=== PATIENT | female | born 1960 | race Caucasian/White ===

== ENCOUNTER 2018-11-22 11:56 | Inpatient (IN) | payer BC ==
[~2018-11-22] VITALS: Ht 167.6 cm; Wt 77.1 kg
[2018-11-22 13:15] LABS: CALCIUM 9.6 mg/dL (8.4-11.0); CREATININE 0.77 mg/dL (0.55-1.30); POTASSIUM 3.8 mmol/L (3.5-5.1)
[2018-11-22] MEDS ORDERED: MORPHINE 4 MG/ML INJ. SYRINGE IVP ONE ×2 (13:15→15:00)
[2018-11-22 13:16] LABS: BILIRUBIN,URINE NEGATIVE (NEGATIVE); BLOOD, URINE NEGATIVE (NEGATIVE); CLARITY/URINE CLEAR (CLEAR); COLOR,URINE YELLOW (YELLOW); GLUCOSE,URINE 3+ (NEGATIVE); KETONES,URINE 1+ (NEGATIVE); LEUKOCYTE ESTERASE ,URINE NEGATIVE (NEGATIVE); NITRITE, URINE NEGATIVE (NEGATIVE); PROTEIN URINE NEGATIVE (NEGATIVE); UROBILINOGEN,URINE 0.2 (0.2-1.0)
[2018-11-22 13:19] LABS: ALBUMIN 3.9 g/dL (3.4-4.8); TOTAL BILIRUBIN 0.4 mg/dL (0.0-1.0)
[2018-11-22 13:20] LABS: RED BLOOD CELL COUNT(AUTO) 4.92 MIL/uL (4.2-6.2); WHITE BLOOD COUNT (AUTO) 8.7 K/uL (4.8-10.8)
[2018-11-22 13:21] LABS: HEMATOCRIT 47.8 % (36-48); MEAN CORPUSCULAR HEMOGLOBIN 33 pg (27-31); MEAN CORPUSCULAR HGB CONC 34 % (32-36); MEAN CORPUSCULAR VOLUME 97 fL (79.0-98.0); PLATELET COUNT (AUTO) 187 K/uL (130-430); RED CELL DISTRIBUTION WIDTH 12.9 % (9.0-15.0)
[2018-11-22 13:22] LABS: BASOPHILS % (AUTO) 0.5 % (0.0-2.0); EOSINOPHILS # (AUTO) 0.1 K/uL (0.0-0.4); EOSINOPHILS % (AUTO) 1.2 % (0.0-4.0); LYMPHOCYTES # (AUTO) 2.3 K/uL (1.0-5.5); LYMPHOCYTES % (AUTO) 26.3 % (20.5-51.5); MONOCYTES # (AUTO) 0.6 K/uL (0.0-1.0); MONOCYTES % (AUTO) 6.5 % (1.7-9.3); NEUTROPHILS # (AUTO) 5.7 K/uL (1.8-7.7); NEUTROPHILS % (AUTO) 65.5 % (40.0-70.0)
[2018-11-22 13:33] LABS: RBC,URINE 0-3 /HPF (0-3)
[2018-11-22 13:34] LABS: BACTERIA,URINE RARE /HPF (None Seen); MUCUS,URINE None Seen /LPF (None Seen); WBC,URINE 0-3 /HPF (0-3); YEAST,URINE None Seen /HPF (None Seen)
[2018-11-22] MEDS ORDERED: ONDANSETRON HCL 4 MG/2 ML VIAL IVP ONE (14:00)
[2018-11-22] MEDS ORDERED: ESTR1TAB17 PO (16:22)
[2018-11-22] MEDS ORDERED: SIMV10TA2 PO (16:22)
[2018-11-22] MEDS ORDERED: LOSA50TA3 PO (16:22)
[2018-11-22] MEDS ORDERED: METF-380 PO (16:22)
[2018-11-22] MEDS ORDERED: SAXA5TAB PO (16:22)
[2018-11-22] MEDS ORDERED: NYST15CR2 TP (16:22)
[2018-11-22] MEDS ORDERED: fentaNYL CITRATE/PF 100 MCG/2 ML AMP IVP ONE (16:45)
[2018-11-22 17:02] VITALS: BP_SYST 191
[2018-11-22] MEDS ORDERED: DEXTROSE 50% JECT 50 ML DISP.SYRIN IVP PRN (17:15)
[2018-11-22] MEDS ORDERED: cloNIDine HCL 0.1 MG TABLET PO PRN (17:30)
[2018-11-22] MEDS ORDERED: METOCLOPRAMIDE HCL 10 MG/2 ML VIAL IVP PRN (17:30)
[2018-11-22] MEDS ORDERED: hydrALAZINE HCL 20 MG/ML VIAL IVP PRN (17:30)
[2018-11-22] MEDS ORDERED: ENALAPRILAT DIHYDRATE 1.25 MG/ML VIAL IVP PRN (17:30)
[2018-11-22] MEDS: D5NS 1,000 ML IV SCH (17:48)
[2018-11-22] MEDS: INSULIN REGULAR, HUMAN 100 UNITS/ML, 10 ML VIAL (novoLIN R) SUBCUT PRN ×2 (17:54→23:42)
[2018-11-22] MEDS: metroNIDAZOLE 500 mg/NS 100 ML IV SCH (18:52)
[2018-11-22] MEDS: HYDROmorphone 2 MG/ML VIAL IVP PRN ×2 (18:53→23:36)
[2018-11-22 19:00] VITALS: BP_SYST 138
[2018-11-22 20:00] VITALS: BP_SYST 131
[2018-11-22] MEDS: LEVOFLOXACIN 500 MG/D5W 100 ML IV SCH (20:15)
[2018-11-23 00:50] VITALS: BP_SYST 150
[2018-11-23] MEDS: D5NS 1,000 ML IV SCH ×3 (01:32→22:30)
[2018-11-23] MEDS: metroNIDAZOLE 500 mg/NS 100 ML IV SCH ×3 (01:32→17:03)
[2018-11-23] MEDS: HYDROmorphone 2 MG/ML VIAL IVP PRN ×3 (04:50→23:19)
[2018-11-23] MEDS: INSULIN REGULAR, HUMAN 100 UNITS/ML, 10 ML VIAL (novoLIN R) SUBCUT PRN ×4 (05:24→23:36)
[2018-11-23] MEDS: ONDANSETRON HCL 4 MG/2 ML VIAL IVP PRN (08:35)
[2018-11-23 08:38] VITALS: BP_SYST 146
[2018-11-23] MEDS: LOSARTAN POTASSIUM 50 MG TABLET (COZAAR) PO SCH (10:50)
[2018-11-23] MEDS: ESTRADIOL 1 MG TABLET (ESTRACE) PO SCH (10:50)
[2018-11-23 12:30] VITALS: BP_SYST 133
[2018-11-23 16:08] VITALS: BP_SYST 155
[2018-11-23 17:00] VITALS: BP_SYST 150
[2018-11-23] MEDS: LEVOFLOXACIN 500 MG/D5W 100 ML IV SCH (19:50)
[2018-11-23 19:55] VITALS: BP_SYST 153
[2018-11-23] MEDS ORDERED: IOHEXOL 0 ML IV ONE ×2 (20:39→20:43)
[2018-11-23] MEDS ORDERED: fentaNYL CITRATE/PF 100 MCG/2 ML AMP IVP PRN ×2 (21:15)
[2018-11-23] MEDS ORDERED: ONDANSETRON HCL 4 MG/2 ML VIAL IVP PRN (21:15)
[2018-11-23] MEDS ORDERED: KETOROLAC TROMETHAMINE 30 MG VIAL IVP PRN (21:15)
[2018-11-23] MEDS ORDERED: HYDROcodone/ACETAMIN 5-325 MG TAB (NORCO/ VICODIN) PO PRN (22:15)
[2018-11-23] MEDS ORDERED: KETOROLAC TROMETHAMINE 30 MG VIAL ONE (22:27)
[2018-11-23] MEDS ORDERED: ONDANSETRON HCL 4 MG/2 ML VIAL ONE (22:52)
[2018-11-24 00:05] VITALS: BP_SYST 116
[2018-11-24] MEDS: metroNIDAZOLE 500 mg/NS 100 ML IV SCH ×3 (02:30→17:10)
[2018-11-24] MEDS: HYDROmorphone 2 MG/ML VIAL IVP PRN ×3 (03:30→13:33)
[2018-11-24] MEDS: D5NS 1,000 ML IV SCH ×2 (05:52→18:18)
[2018-11-24] MEDS: INSULIN REGULAR, HUMAN 100 UNITS/ML, 10 ML VIAL (novoLIN R) SUBCUT PRN ×3 (05:53→17:11)
[2018-11-24 06:51] VITALS: BP_SYST 122
[2018-11-24 08:30] VITALS: BP_SYST 131
[2018-11-24] MEDS: ESTRADIOL 1 MG TABLET (ESTRACE) PO SCH (08:56)
[2018-11-24] MEDS: LOSARTAN POTASSIUM 50 MG TABLET (COZAAR) PO SCH (08:57)
[2018-11-24 12:00] VITALS: BP_SYST 134
[2018-11-24 15:52] VITALS: BP_SYST 107
[2018-11-24] MEDS: ONDANSETRON HCL 4 MG/2 ML VIAL IVP PRN (18:24)
[2018-11-24 19:30] VITALS: BP_SYST 137
== END 2018-11-24 20:10 | disposition home or self-care (01) | DRG 418 ==
LOC: SED 11:56 → SMU 14:40 → UNDOADMIN 14:40 → SMU 16:24
PROVIDERS: ADMIT Internal Medicine Hospice and Palliative Medicine; ATTEND Internal Medicine Hospice and Palliative Medicine
PROC: 0FT44ZZ Resection of Gallbladder, Percutaneous Endoscopic Approach (ICD-10-PCS; principal; 2018-11-23 20:30)
DX: K80.00 Calculus of gallbladder with acute cholecystitis without obstruction (principal); K82.1 Hydrops of gallbladder; E66.9 Obesity, unspecified; R16.0 Hepatomegaly, not elsewhere classified; E11.65 Type 2 diabetes mellitus with hyperglycemia; I10 Essential (primary) hypertension; Z90.49 Acquired absence of other specified parts of digestive tract; Z68.27 Body mass index [BMI] 27.0-27.9, adult
CPT/HCPCS: 36415; 74021; 76700-TC; 80053; 81000-TC; 82962; 83690-TC; 85025; 87081; 88304; 90656; 93005; 96374; 96375; 96376; 99285; C1727; J0360; J1170; J1815; J1885; J1956; J2270; J2405; J3010; J3490; J7042; Q9967

== ENCOUNTER 2022-12-18 20:31 | Emergency (ER) | payer BC, OTHER ==
[~2022-12-18] VITALS: Ht 167.6 cm; Wt 72.6 kg
[~2022-12-18 20:31] MED LIST: ESTR1TAB17 PO; LOSA50TA3 PO; METF-380 PO; NYST15CR37 TP; SAXA5TAB PO; SIMV-341 PO
[2022-12-18 20:35] VITALS: BP_SYST 133
[2022-12-18 23:13] VITALS: BP_SYST 144
[2022-12-19] MEDS ORDERED: ONDA-8 TL (11:05)
[2022-12-19] MEDS ORDERED: IBUP-1970 PO (11:05)
== END 2022-12-18 23:13 | disposition home or self-care (01) ==
LOC: SED 20:31
DX: M25.462 Effusion, left knee (principal); E11.9 Type 2 diabetes mellitus without complications; I10 Essential (primary) hypertension; Z79.899 Other long term (current) drug therapy
CPT/HCPCS: 73564; 99283